=== PATIENT | female | born 1990 | race Caucasian/White ===

== ENCOUNTER 2022-03-09 21:35 | Emergency (ER) | payer OTHER ==
[~2022-03-09 21:35] MED LIST: FLAGYL500 MG PO; MACROBID100 MG PO; MOTRIN600 MG PO; ZOFRAN4 MG PO
== END 2022-03-09 23:30 | disposition home or self-care (01) ==
LOC: FER 21:35
DX: M25.472 Effusion, left ankle (principal); F17.210 Nicotine dependence, cigarettes, uncomplicated; Z28.310 Unvaccinated for COVID-19; W19.XXXA Unspecified fall, initial encounter; Y92.009 Unspecified place in unspecified non-institutional (private) residence as the place of occurrence of the external cause
CPT/HCPCS: 73630